=== PATIENT | male | born 1975 | race Two or more races ===

== ENCOUNTER → 2018-06-01 | Outpatient (CLI) | payer OTHER | END | disposition home or self-care (01) | LOC: RADPV 08:05 | PROVIDERS: ATTEND Orthopaedic Surgery Hand Surgery | DX: S62.324D Displaced fracture of shaft of fourth metacarpal bone, right hand, subsequent encounter for fracture with routine healing (principal); Q71.811 Congenital shortening of right upper limb; M79.89 Other specified soft tissue disorders; X58.XXXD Exposure to other specified factors, subsequent encounter ==